=== PATIENT | male | born 1945 | race Caucasian/White ===

== ENCOUNTER → 2017-02-02 | Day surgery (SDC) | payer MEDICARE, BC ==
[~2017-02-02] MED LIST: Lactated Ringers 1,000 ML IV SCH; Propofol 200 MG/20 ML SDV IV ONE
[2017-02-02 10:44] VITALS: BP 132/73
--- NOTE | 2017-02-02 13:10 | OR ---
DATE OF OPERATION: 02/02/2017 PREOPERATIVE DIAGNOSIS: SCREENING COLONOSCOPY. POSTOPERATIVE DIAGNOSIS: SCREENING COLONOSCOPY. SURGEON: Herbert Raymundo MD PROCEDURE: FULL-LENGTH COLONOSCOPY WITH SNARE POLYPECTOMY X1. ANESTHESIA: HOME CARE AIDE due to COPD. COMPLICATIONS: None. SPECIMEN: 0.5 cm tubular adenoma, rectal vault. RECOMMENDATIONS: Followup colonoscopy in 5 years. FINDINGS: Mild sigmoid diverticulosis. INDICATIONS: The patient was in for a physical, it had been 10 years since his last scope. We recommended a screening procedure. DESCRIPTION OF PROCEDURE: The patient was prepped and draped, placed in the left lateral decubitus position. A lubricated Olympus colonoscope was inserted and easily advanced to the cecum. Direct visualization of the ileocecal valve along with the appendicial orifice was accomplished. Bowel prep was fine. Upon withdrawal, the patient's cecum and ascending transverse colon completely benign as well as the descending. In the sigmoid colon, the patient had some scattered diverticulosis mild in severity from the mid portion all way through the rectosigmoid junction. No acute inflammatory changes were seen. There were no vascular abnormalities or signs of colitis. No bleeding sites. The rectal vault had a stalked just under 0.5 cm tubular adenoma easily removed with a snare and brought out right through the rectum. Reinsertion of scope was accomplished. Retroflexion showed no perianal lesions. The removal site looked great. Air was then suctioned. Scope removed without complication. AG /[id number]
== END ==
LOC: CC.SDS 09:21
PROVIDERS: ATTEND Family Medicine
DX: Z12.11 Encounter for screening for malignant neoplasm of colon (principal); D12.8 Benign neoplasm of rectum; K57.30 Diverticulosis of large intestine without perforation or abscess without bleeding; I10 Essential (primary) hypertension; F41.9 Anxiety disorder, unspecified; N40.0 Benign prostatic hyperplasia without lower urinary tract symptoms; J44.9 Chronic obstructive pulmonary disease, unspecified; E78.5 Hyperlipidemia, unspecified; Z79.899 Other long term (current) drug therapy; Z98.890 Other specified postprocedural states; Z87.891 Personal history of nicotine dependence
CPT/HCPCS: 45385; 88305; J2704; J7120; 00810

== ENCOUNTER 2019-03-06 13:14 | Emergency (ER) | payer MEDICARE, BC ==
[2019-03-06] MEDS ORDERED: Aspirin 81 MG Tab.Chew PO ONE (13:33)
[2019-03-06] MEDS ORDERED: Nitroglycerin 0.4 MG Tab.SL SL ONE (13:34)
[2019-03-06 13:52] LABS: CHLORIDE,CL 102 mEq/L (98-106); SODIUM,NA 139 mEq/L (136-145)
[2019-03-06 14:20] VITALS: BP 152/80
[2019-03-06] MEDS ORDERED: Acetaminophen 325 MG Tab PO ONE (14:28)
[2019-03-06] MEDS ORDERED: Lidocaine 1% 20 ML MDV ONE (14:29)
[2019-03-06] MEDS ORDERED: methylPREDNISolone Acetate 80 MG/ML SDV IM ONE (14:34)
[2019-03-06] MEDS ORDERED: cefTRIAXone 1 GM Vial IM ONE (14:35)
[2019-03-06] MEDS ORDERED: Lidocaine 1% 20 ML MDV INJECT ONE (14:38)
--- NOTE | 2019-03-06 14:38 | EDM.PDOC ---
ED HPI GENERAL MEDICAL PROBLEM - General Chief Complaint: Chest Pain Stated Complaint: chest pain and shortness of breath Time Seen by Provider: 03/06/19 13:28 Source of Information: Reports: Patient History Limitations: Reports: No Limitations - History of Present Illness INITIAL COMMENTS - FREE TEXT/NARRATIVE: Was out working in yard when he developed some SOB and not feeling well. Had cough. NO swelling noted. States his breathing feels hard. Presented to ER as he was afraid of COPD acting up. Onset: Sudden Location: Reports: Chest Associated Symptoms: Reports: Chest Pain, Cough anterior chest Pain Score (Numeric/FACES): 5 - Related Data Allergies Allergy/AdvReac Type Severity Reaction Status Date / Time No Known Allergies Allergy Verified 03/06/19 14:02 Home Meds: Home Meds Arformoterol [Brovana] 15 mcg NEB BIDRT 11/07/15 [History] Budesonide [Pulmicort] 0.5 mg INH BID 11/07/15 [History] Losartan [Cozaar] 100 mg PO BEDTIME 11/07/15 [History] Montelukast [Singulair] 10 mg PO BEDTIME 11/07/15 [History] Simvastatin 40 mg PO BEDTIME 11/07/15 [History] amLODIPine [Norvasc] 10 mg PO BEDTIME 11/07/15 [History] predniSONE 5 mg PO DAILY 11/09/15 [History] Cyanocobalamin (Vitamin B-12) [Cyanocobalamin Injection] 1,000 mcg IM Q30D 02/01 [History] Roflumilast [Daliresp] 500 mcg PO DAILY 02/01/17 [History] Albuterol [IJD: Albuterol HFA] 1 each INH Q4HR PRN 11/29/17 [History] Citalopram Hydrobromide [Celexa] 1 each PO DAILY 11/29/17 [History] Fluticasone Propionate [Flonase] 50 mcg BETTY BEDTIME 11/29/17 [History] ALPRAZolam [Xanax] 0.25 mg PO BEDTIME 03/06/19 [History] Past Medical History HEENT History: Reports: Impaired Vision Cardiovascular History: Reports: High Cholesterol, Hypertension Respiratory History: Reports: COPD Other Respiratory History: Was seeing Dr. Gupta in [place], so he went to another floor renovator on 11-08-17, who referred him to pulmonary rehab. Patient said he is getting more SOB; he is to return to the floor renovator in [address] obtained from Dr. Raymundo. PFT's done on 11-08-17 Psychiatric History: Reports: Anxiety - Past Surgical History Musculoskeletal Surgical History: Reports: Shoulder Surgery Other Musculoskeletal Surgeries/Procedures:: says that he has some back pain when walking; also reports that his legs go number from the thigh down both legs when walking--discussed. Encouraged to report this to Dr. Raymundo when he sees him next. Social & Family History - Tobacco Use Smoking Status *Q: Former Smoker Used Tobacco, but Quit: Yes Month/Year Tobacco Last Used: quit 25 years ago Second Hand Smoke Exposure: No - Caffeine Use Caffeine Use: Reports: Coffee Caffeine Use Comment: 2 CUPS PER WEEK ED ROS GENERAL - Review of Systems Review Of Systems: See Below Constitutional: Reports: Fever, Chills, Weakness HEENT: Reports: No Symptoms Respiratory: Reports: Shortness of Breath, Cough, Sputum Cardiovascular: Reports: Chest Pain. Denies: Edema GI/Abdominal: Reports: No Symptoms : Reports: No Symptoms Musculoskeletal: Reports: No Symptoms Skin: Reports: No Symptoms Neurological: Reports: No Symptoms ED EXAM, GENERAL - Physical Exam Exam: See Below Exam Limited By: No Limitations General Appearance: Alert, WD/WN, Mild Distress Ears: Normal External Exam, Normal Canal, Normal TMs Nose: Normal Inspection Throat/Mouth: Normal Inspection, Normal Oropharynx Head: Atraumatic, Normocephalic Neck: Normal Inspection, Supple, Non-Tender, Full Range of Motion Respiratory/Chest: Lungs Clear, Chest Non-Tender, Decreased Breath Sounds, Wheezing. No: Rales, Rhonchi Cardiovascular: Regular Rate, Rhythm, No Edema GI/Abdominal: Normal Bowel Sounds, Soft, Non-Tender Neurological: Alert, Oriented Psychiatric: Normal Affect Course - Vital Signs Last Recorded V/S: Last Vital Signs Temp 101.3 F H 03/06/19 14:19 Pulse 105 H 03/06/19 14:19 Resp 20 03/06/19 14:19 BP 152/80 H 03/06/19 14:19 Pulse Ox 94 L 03/06/19 14:36 - Orders/Labs/Meds Labs: Laboratory Tests 03/06/19 03/06/19 03/06/19 Range/Units 13:32 13:32 13:32 WBC 17.4 H (5.0-10.0) 10^3/uL RBC 4.13 L (4.50-6.00) 10^6/uL Hgb 13.6 L (14.0-18.0) g/dL Hct 40.6 (40.0-54.0) % MCV 98.3 H (82.0-94.0) fL MCH 32.9 H (27.0-32.0) pg MCHC 33.5 (33.0-38.0) g/dL RDW Coeff of Priscila 13.6 (11.0-15.0) % Plt Count 344 (150-400) 10^3/uL Neut % (Auto) 87.4 H (35-85) % Lymph % (Auto) 2.5 L (10-55) % [place] % (Auto) 9.6 (0-16) % Eos % (Auto) 0.3 (0-5) % Baso % (Auto) 0.2 (0-3) % Neut # (Auto) 15.21 H (1.80-7.00) 10^3/uL Lymph # (Auto) 0.43 L (1.00-4.80) 10^3/uL [place] # (Auto) 1.67 H (0.00-0.80) 10^3/uL Eos # (Auto) 0.05 (0.00-0.45) 10^3/uL Baso # (Auto) 0.03 10^3/uL PT 9.8 (9.7-12.3) SEC INR 0.95 (0.92-1.18) D-Dimer, Quantitative 0.58 H (0.00-0.50) Sodium 139 (136-145) mEq/L Potassium 3.9 (3.5-5.0) mEq/L Chloride 102 (98-106) mEq/L Carbon Dioxide 25 (21-32) mmol/L BUN 20 H (7-18) mg/dL Creatinine 1.2 (0.7-1.3) mg/dL Est Cr Clr Drug Dosing 53.19 mL/min Estimated GFR (MDRD) 59 L (>=60) mL/min Glucose 117 H (75-99) mg/dL Lactic Acid (0.4-2.0) mmol/L Calcium 9.2 (8.4-10.1) mg/dL Total Bilirubin 0.5 (0.0-1.0) mg/dL AST 15 (15-37) U/L ALT 21 (12-78) U/L Alkaline Phosphatase 50 (46-116) U/L Lactate Dehydrogenase 173 (100-190) U/L Creatine Kinase 136 (35-232) U/L Troponin I < 0.017 (0.00-0.06) ng/mL C-Reactive Protein 0.2 (0.2-0.8) mg/dL Total Protein 7.1 (6.4-8.2) g/dL Albumin 3.7 (3.4-5.0) g/dL 03/06/19 Range/Units 13:32 WBC (5.0-10.0) 10^3/uL RBC (4.50-6.00) 10^6/uL Hgb (14.0-18.0) g/dL Hct (40.0-54.0) % MCV (82.0-94.0) fL MCH (27.0-32.0) pg MCHC (33.0-38.0) g/dL RDW Coeff of Priscila (11.0-15.0) % Plt Count (150-400) 10^3/uL Neut % (Auto) (35-85) % Lymph % (Auto) (10-55) % [place] % (Auto) (0-16) % Eos % (Auto) (0-5) % Baso % (Auto) (0-3) % Neut # (Auto) (1.80-7.00) 10^3/uL Lymph # (Auto) (1.00-4.80) 10^3/uL [place] # (Auto) (0.00-0.80) 10^3/uL Eos # (Auto) (0.00-0.45) 10^3/uL Baso # (Auto) 10^3/uL PT (9.7-12.3) SEC INR (0.92-1.18) D-Dimer, Quantitative (0.00-0.50) Sodium (136-145) mEq/L Potassium (3.5-5.0) mEq/L Chloride (98-106) mEq/L Carbon Dioxide (21-32) mmol/L BUN (7-18) mg/dL Creatinine (0.7-1.3) mg/dL Est Cr Clr Drug Dosing mL/min Estimated GFR (MDRD) (>=60) mL/min Glucose (75-99) mg/dL Lactic Acid 1.7 (0.4-2.0) mmol/L Calcium (8.4-10.1) mg/dL Total Bilirubin (0.0-1.0) mg/dL AST (15-37) U/L ALT (12-78) U/L Alkaline Phosphatase (46-116) U/L Lactate Dehydrogenase (100-190) U/L Creatine Kinase (35-232) U/L Troponin I (0.00-0.06) ng/mL C-Reactive Protein (0.2-0.8) mg/dL Total Protein (6.4-8.2) g/dL Albumin (3.4-5.0) g/dL Meds: Medications Discontinued Medications Generic Name Dose Route Start Last Admin Trade Name Freq PRN Reason Stop Dose Admin Acetaminophen 650 mg 03/06/19 14:28 03/06/19 14:30 Tylenol PO 03/06/19 14:29 650 mg NOW ONE Administration Aspirin 324 mg 03/06/19 13:33 03/06/19 13:42 Aspirin PO 03/06/19 13:34 324 mg ONETIME ONE Administration Ceftriaxone Sodium 1 gm 03/06/19 14:35 03/06/19 14:39 Rocephin IM 03/06/19 14:36 1 gm ONETIME ONE Administration Lidocaine HCl 2.1 ml 03/06/19 14:38 03/06/19 14:39 Xylocaine 1% INJECT 03/06/19 14:39 2.1 ml ONETIME ONE Administration Lidocaine HCl Confirm 03/06/19 14:29 Xylocaine 1% Administered 03/06/19 14:30 Dose 20 ml .ROUTE .STK-MED ONE Methylprednisolone Acetate 80 mg 03/06/19 14:34 03/06/19 14:39 Depo-Medrol IM 03/06/19 14:35 80 mg ONETIME ONE Administration Nitroglycerin 0.4 mg 03/06/19 13:34 03/06/19 13:41 Nitrostat SL 03/06/19 13:35 0.4 mg ONETIME ONE Administration Departure - Departure Time of Disposition: 14:33 Disposition: Home, Self-Care 01 Condition: Good Clinical Impression: Bronchitis COPD (chronic obstructive pulmonary disease) Qualifiers: COPD type: COPD with acute exacerbation Qualified Code(s): J44.1 - Chronic obstructive pulmonary disease with (acute) exacerbation - Discharge Information *PRESCRIPTION DRUG MONITORING PROGRAM REVIEWED*: Not Applicable *COPY OF PRESCRIPTION DRUG MONITORING REPORT IN PATIENT CHARLIE: Not Applicable Referrals: Herbert Raymundo MD [Primary Care Provider] - Forms: ED Department Discharge Additional Instructions: push fluids as much as possible zpak at home. Take 2 today and 1 daily for 4 additional days Follow up with Dr. Raymundo in 1 week. alternate tylenol and advil for fever and discomfort Return if symptoms get worse. - Problem List & Annotations (1) Bronchitis SNOMED Code(s): 84893651 Code(s): J40 - BRONCHITIS, NOT SPECIFIED ACUTE OR CHRONIC Status: Acute Priority: High Onset Date: ~03/06/19 (2) COPD (chronic obstructive pulmonary disease) SNOMED Code(s): 30172105 Code(s): J44.9 - CHRONIC OBSTRUCTIVE PULMONARY DISEASE, UNSPECIFIED Status : Chronic Priority: High Qualifiers: COPD type: COPD with acute exacerbation Qualified Code(s): J44.1 - Chronic obstructive pulmonary disease with (acute) exacerbation - Problem List Review Problem List Initiated/Reviewed/Updated: Yes
== END 2019-03-06 15:00 | disposition home or self-care (01) ==
LOC: CC.ED 13:14
DX: J44.1 Chronic obstructive pulmonary disease with (acute) exacerbation (principal); J40 Bronchitis, not specified as acute or chronic; E78.00 Pure hypercholesterolemia, unspecified; I10 Essential (primary) hypertension; J44.9 Chronic obstructive pulmonary disease, unspecified; Z79.899 Other long term (current) drug therapy; Z87.891 Personal history of nicotine dependence
CPT/HCPCS: 36415; 71046; 80053; 82550; 83605; 83615; 84484; 85025; 85379; 85610; 86140; 93005; 96372; 99285-25; A9270-GY; J0696; J1040; J2001

== ENCOUNTER 2021-02-28 19:17 | Emergency (ER) | payer MEDICARE, BC ==
[2021-02-28 19:48] VITALS: BP 149/69; PULSE 81
--- NOTE | 2021-02-28 19:56 | EDM.PDOC ---
ED HPI GENERAL MEDICAL PROBLEM - General Chief Complaint: General Stated Complaint: rib pain Time Seen by Provider: 02/28/21 19:55 Source of Information: Reports: Patient History Limitations: Reports: No Limitations - History of Present Illness INITIAL COMMENTS - FREE TEXT/NARRATIVE: Remi is a 75 yo male who presents to the ED with c/o right sided anterolateral rib pain. He reports that he fell against his truck, landing on the right side of his chest. He denies any other injury or complaints. He reports instant pain to the right side of his chest. He reports he does have COPD, so is chronically short of breath, but did feel like he was more short of breath following injury. Onset: Today, Sudden Location: Reports: Chest (right) Quality: Reports: Ache Worsens with: Reports: Breathing Associated Symptoms: Reports: No Other Symptoms Right Chest Pain Score (Numeric/FACES): 7 - Related Data Allergies Allergy/AdvReac Type Severity Reaction Status Date / Time No Known Allergies Allergy Verified 02/28/21 19:21 Home Meds: Home Meds Arformoterol [Brovana] 15 mcg NEB BIDRT 11/07/15 [History] Budesonide [Pulmicort] 0.5 mg INH BID 11/07/15 [History] Losartan [Cozaar] 100 mg PO BEDTIME 11/07/15 [History] Montelukast [Singulair] 10 mg PO BEDTIME 11/07/15 [History] Simvastatin 40 mg PO BEDTIME 11/07/15 [History] amLODIPine [Norvasc] 10 mg PO BEDTIME 11/07/15 [History] predniSONE 5 mg PO DAILY 11/09/15 [History] Cyanocobalamin (Vitamin B-12) [Cyanocobalamin Injection] 1,000 mcg IM Q30D 02/01/17 [History] Roflumilast [Daliresp] 500 mcg PO DAILY 02/01/17 [History] Albuterol [IJD: Albuterol HFA] 1 each INH Q4HR PRN 11/29/17 [History] Citalopram Hydrobromide [Celexa] 1 each PO DAILY 11/29/17 [History] Fluticasone Propionate [Flonase] 50 mcg BETTY BEDTIME 11/29/17 [History] ALPRAZolam [Xanax] 0.25 mg PO BEDTIME 03/06/19 [History] Past Medical History HEENT History: Reports: Impaired Vision Cardiovascular History: Reports: High Cholesterol, Hypertension Respiratory History: Reports: COPD Other Respiratory History: Was seeing Dr. Gupta in [place] [address] [place], so he went to another aqua ammonia operator on 11-08-17, who referred him to pulmonary rehab. Patient said he is getting more SOB; he is to return to the aqua ammonia operator in 3 months. Order for CO obtained from Dr. Raymundo. PFT's done on 11-08-17 Psychiatric History: Reports: Anxiety - Past Surgical History Musculoskeletal Surgical History: Reports: Shoulder Surgery Other Musculoskeletal Surgeries/Procedures:: says that he has some back pain when walking; also reports that his legs go number from the thigh down both legs when walking--discussed. Encouraged to report this to Dr. Raymundo when he sees him next. Social & Family History - Family History Family Medical History: No Pertinent Family History - Caffeine Use Caffeine Use: Reports: Coffee Caffeine Use Comment: 2 CUPS PER WEEK ED ROS GENERAL - Review of Systems Review Of Systems: Comprehensive ROS is negative, except as noted in HPI. ED EXAM, GENERAL - Physical Exam Exam: See Below Exam Limited By: No Limitations General Appearance: Alert, WD/WN, No Apparent Distress Eye Exam: Bilateral Eye: PERRL, Other Head: Atraumatic, Normocephalic Neck: Normal Inspection, Supple, Non-Tender, Full Range of Motion Respiratory/Chest: No Respiratory Distress, Lungs Clear, No Accessory Muscle Use, Decreased Breath Sounds, Other (tenderness to right anterolateral aspect of chest wall ~ ribs 5-9) Cardiovascular: Normal Peripheral Pulses, Regular Rate, Rhythm, No Edema, No Gallop, No JVD, No Murmur, No Rub GI/Abdominal: Normal Bowel Sounds, Soft, Non-Tender, No Organomegaly, No Distention, No Abnormal Bruit, No Mass Extremities: Normal Inspection, Normal Range of Motion, Non-Tender, Normal Capillary Refill, No Pedal Edema Neurological: Alert, Oriented, CN II-XII Intact, Normal Cognition, Normal Gait, Normal Reflexes, No Motor/Sensory Deficits Psychiatric: Normal Affect, Normal Mood Skin Exam: No: Ecchymosis Course - Vital Signs Last Recorded V/S: Last Vital Signs Temp 99.1 F 02/28/21 19:39 Pulse 81 02/28/21 19:39 Resp 18 02/28/21 19:39 BP 149/69 H 02/28/21 19:39 Pulse Ox 98 02/28/21 19:39 - Orders/Labs/Meds Meds: Medications Discontinued Medications Generic Name Dose Route Start Last Admin Trade Name Silvia PRN Reason Stop Dose Admin Hydrocodone Bitart/Acetaminophen 2 packet 02/28/21 20:29 02/28/21 23:17 Take Home: Acetaminophen/Hydrocodone 325-5 Mg, 2 Tab Pack PO 02/28/21 20:30 Not Given ONETIME ONE Departure - Departure Time of Disposition: 20:24 Disposition: Home, Self-Care 01 Condition: Fair Clinical Impression: Contusion of rib on right side Qualifiers: Encounter type: initial encounter Qualified Code(s): S20.211A - Contusion of right front wall of thorax, initial encounter - Discharge Information *PRESCRIPTION DRUG MONITORING PROGRAM REVIEWED*: Yes *COPY OF PRESCRIPTION DRUG MONITORING REPORT IN PATIENT CHARLIE: Yes Instructions: Rib Contusion Referrals: Herbert Raymundo MD [Primary Care Provider] - Forms: ED Department Discharge Additional Instructions: - Xrays do not show obvious acute fracture - Discussed importance of deep breathing/coughing to prevent pneumonia - [place] 1 tablet every 6 hours as needed for severe pain - Tylenol or ibuprofen as needed for less severe pain - Ice or heat to affected area as needed for comfort - Recommend follow up with PCP if pain worsens or persist or develop any worsening shortness of breath - Return to ED for any emergent needs Sepsis Event Note (ED) - Evaluation Sepsis Screening Result: No Definite Risk - Problem List & Annotations (1) Contusion of rib on right side SNOMED Code(s): 177413436 Code(s): S20.211A - CONTUSION OF RIGHT FRONT WALL OF THORAX, INITIAL ENCOUNTER Status: Acute Qualifiers: Encounter type: initial encounter Qualified Code(s): S20.211A - Contusion of right front wall of thorax, initial encounter - Assessment/Plan Assessment:: Contusion of ribs, right side Plan: As above.
[2021-02-28] MEDS ORDERED: Take Home: Acetaminophen/HYDROcodone 325-5 MG, 2 Tab Pack PO ONE (20:29)
== END 2021-02-28 20:45 | disposition home or self-care (01) ==
LOC: CC.ED 19:17
DX: S20.211A Contusion of right front wall of thorax, initial encounter (principal); E78.00 Pure hypercholesterolemia, unspecified; I10 Essential (primary) hypertension; J44.9 Chronic obstructive pulmonary disease, unspecified; Z79.899 Other long term (current) drug therapy; W18.39XA Other fall on same level, initial encounter
CPT/HCPCS: 71046; 99283; 99283-25; A9270-GY

== ENCOUNTER → 2021-09-30 | Day surgery (SDC) | payer MEDICARE, BC ==
[~2021-09-30] MED LIST changes: +Ketamine 200 MG/20 ML MDV ONE; +Neostigmine Methylsulfate 10 MG/10 ML MDV ONE; -Propofol 200 MG/20 ML SDV IV ONE; +Propofol 200 MG/20 ML SDV ONE; +fentaNYL 100 MCG/2 ML SDV ONE
[2021-09-30 10:17] VITALS: BP 120/58; PULSE 60
--- NOTE | 2021-09-30 10:36 | OR ---
DATE OF OPERATION: 09/30/2021 PREOPERATIVE DIAGNOSIS: HISTORY OF POLYPS. POSTOPERATIVE DIAGNOSIS: HISTORY OF POLYPS. SURGEON: Herbert Raymundo MD PROCEDURE: FULL-LENGTH COLONOSCOPY WITH FORCEPS POLYP REMOVAL X3, SNARE POLYPECTOMY X2. ANESTHESIA: MAC. COMPLICATIONS: None. SPECIMEN: 1. Three small sessile polyps, right colon. 2. Large tubulovillous adenoma, splenic flexure. 3. Large tubular adenoma in the rectal vault. FINDINGS: 1. Full-length colonoscopy. 2. Colon polyps x5, see report. 3. Sigmoid diverticulosis. RECOMMENDATIONS: Followup colonoscopy in 5 years. INDICATIONS: The patient has a prior colonoscopy in 2017, where he had a tubular adenoma in his vault. We recommended a followup procedure. DESCRIPTION OF PROCEDURE: The patient was prepped and draped, placed in the left lateral decubitus position. A lubricated Olympus colonoscope was inserted and with relative ease advanced to the cecum. Direct visualization of ileocecal valve and appendiceal orifice was accomplished. The bowel prep was excellent. Upon withdrawal of the scope, the cecum appeared benign. In the proximal ascending colon, the patient had a small flat sessile polyp removed in its entirety with cold forceps biopsy. Second polyp was noted at the hepatic flexure, also removed with forceps. He had a 3rd small sessile polyp in the proximal transverse colon, removed with forceps without any complication. The patient did have a larger villous lesion at the splenic flexure, removed with a snare in 2 separate pieces and suctioned into polyp trap #1. No further polyps were found in the descending or sigmoid colon. The patient does have scattered diverticular disease in the sigmoid colon, however. In the rectal vault, the patient had his 5th small, probably 6 mm stalked tubular adenoma removed with a snare and suctioned into polyp trap #2. The scope was then retroflexed, perianal lesion, otherwise benign. Air was suctioned. Scope removed without complication. EMELI/ROBERT /[id number]
== END ==
LOC: CC.SDS 08:04
PROVIDERS: ATTEND Family Medicine
DX: Z12.11 Encounter for screening for malignant neoplasm of colon (principal); D12.2 Benign neoplasm of ascending colon; D12.3 Benign neoplasm of transverse colon; D12.8 Benign neoplasm of rectum; K57.30 Diverticulosis of large intestine without perforation or abscess without bleeding; J44.9 Chronic obstructive pulmonary disease, unspecified; I10 Essential (primary) hypertension; E78.5 Hyperlipidemia, unspecified; F41.9 Anxiety disorder, unspecified; Z79.899 Other long term (current) drug therapy
CPT/HCPCS: 00812; 88305; J2704; J2710; J3010; J7120

== ENCOUNTER 2022-04-03 11:08 | Emergency (ER) | payer MEDICARE, BC ==
[2022-04-03 11:22] VITALS: BP 137/61; PULSE 96
== END 2022-04-03 11:35 | disposition home or self-care (01) ==
LOC: CC.ED 11:08
DX: S01.81XA Laceration without foreign body of other part of head, initial encounter (principal); E78.00 Pure hypercholesterolemia, unspecified; I10 Essential (primary) hypertension; Z79.899 Other long term (current) drug therapy; W25.XXXA Contact with sharp glass, initial encounter
CPT/HCPCS: 12011; 99282-25; 99283